=== PATIENT | female | born 1990 | race Caucasian/White ===

== ENCOUNTER 2018-06-20 14:11 | Emergency (ER) | payer MEDICAID ==
[2018-06-20 14:22] VITALS: BP 146/97
--- NOTE | 2018-06-20 16:09 | ED Physician Documentation ---
PD HPI URI - Stated complaint Stated Complaint: FLU LIKE SYMPTOMS - Chief complaint Chief Complaint: General - History obtained from History obtained from: Patient - History of Present Illness Timing - onset: Yesterday Timing duration: Days (1) Timing details: Abrupt onset, Still present Associated symptoms: Fever, Chills, Sore throat, Dry cough. No: Chest pain, Dyspnea Contributing factors: Sick contact (flu) Similar symptoms before: Has not had sx before Recently seen: Not recently seen Review of Systems Constitutional: reports: Fever, Chills, Myalgias, Fatigue Nose: reports: Rhinorrhea / runny nose, Congestion Throat: reports: Sore throat Respiratory: reports: Cough GI: reports: Nausea. denies: Vomiting, Diarrhea Skin: denies: Rash Neurologic: reports: Headache. denies: Altered mental status PD PAST MEDICAL HISTORY - Past Medical History Cardiovascular: None Respiratory: None Neuro: None Endocrine/Autoimmune: None - Present Medications Home Medications: Ambulatory Orders Medication Instructions Recorded Confirmed Dexamethasone [Decadron] 4 mg PO DAILY #5 tablet 06/20/18 Ondansetron Odt [Zofran] 4 mg TL Q6H PRN #10 tablet 06/20/18 Oseltamivir [Tamiflu] 75 mg PO BID #10 capsule 06/20/18 Tramadol HCl 50 mg PO Q6H PRN #15 tablet 06/20/18 - Allergies Allergies/Adverse Reactions: Allergies Allergy/AdvReac Type Severity Reaction Status Date / Time No Known Drug Allergies Allergy Verified 06/20/18 14:21 PD ED PE NORMAL - Vitals Vital signs reviewed: Yes - General General: Alert and oriented X 3, No acute distress, Well developed/nourished - HEENT HEENT: Ears normal. No: Pharynx benign (some tonsillar swelling and redness without exudate.) - Neck Neck: Supple, no meningeal sign, No adenopathy - Cardiac Cardiac: RRR, No murmur - Respiratory Respiratory: Clear bilaterally - Abdomen Abdomen: Soft, Non tender - Derm Derm: Normal color, Warm and dry - Neuro Neuro: Alert and oriented X 3, No motor deficit, Normal speech Results - Vitals Vitals: Oxygen O2 Source Room air - Labs Labs: Laboratory Tests 06/20/18 14:25 Influenza A (Rapid) POSITIVE H Influenza B (Rapid) Negative PD MEDICAL DECISION MAKING - ED course Complexity details: considered differential (seems like the flu), d/w patient Departure - Departure Disposition: 01 Home, Self Care Clinical Impression: Influenza A Condition: Stable Record reviewed to determine appropriate education?: Yes Instructions: ED Flu, Medication: Tamiflu (Oseltamivir) Prescriptions: Dexamethasone [Decadron] 4 mg PO DAILY #5 tablet Ondansetron Odt [Zofran] 4 mg TL Q6H PRN #10 tablet PRN Reason: Nausea / Vomiting Oseltamivir [Tamiflu] 75 mg PO BID #10 capsule Tramadol HCl 50 mg PO Q6H PRN #15 tablet PRN Reason: Pain Comments: Frequent fluids such as Gatorade. Simple foods such as starches (pasta rice breads) initially and progress as able. Ondansatron if needed for nausea. Tamiflu twice daily for 5 days to reduce the symptoms of the flu a bit. Decadron steroid anti-inflammatory will help with some of the inflammatory symptoms so not quite as ill. Add Tylenol or ibuprofen for fevers and pains. Add tramadol if needed for worse pains. Expect to be sick 5-7 days likely. Off work the next few days as needed until improved enough to return. Forms: Activity restrictions Discharge Date/Time: 06/20/18 16:53
[2018-06-20] MEDS ORDERED: HYDROcod/ACETAM 5/325 MG TABLET PO STA (16:27)
[2018-06-20] MEDS ORDERED: DEXAMETHASONE 10 MG/ML VIAL PO STA (16:27)
[2018-06-20] MEDS ORDERED: ONDANSETRON ODT 4 MG TABLET TL STA (16:27)
[2018-06-20] MEDS ORDERED: CHERRY SYRUP 10 ML UDC PO ONE (16:53)
== END 2018-06-20 16:53 | disposition home or self-care (01) ==
LOC: ED 14:11
DX: J10.89 Influenza due to other identified influenza virus with other manifestations (principal)
CPT/HCPCS: 87275; 87276; 99283; A9270; Q0162

== ENCOUNTER 2018-08-19 21:37 | Emergency (ER) | payer MEDICAID ==
[2018-08-19] MEDS ORDERED: NAPROXEN 250 MG TABLET PO STA (22:23)
--- NOTE | 2018-08-19 22:51 | ED Physician Documentation ---
PD HPI UPPER EXT INJURY - Stated complaint Stated Complaint: BILATE WRIST PX - Chief complaint Chief Complaint: Ext Problem - History obtained from History obtained from: Patient - History of Present Illness Location: Both, Wrist, Hand (She has been having pain in both wrists and numbness in through the middle fingers while at work. 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 She will feel it some numbness even after work. She denies any abrupt injury to it.) Where injury occurred: Work Timing - onset: How many weeks ago (She has been noticing the symptoms for several weeks and has been getting worse. She is now had some pain in the wrist and numbness at work in particular for most of her work shifts in her wrist started hurting with just slight gripping and lifting. She denies any elbow or shoulder pain or any neck pain.) Timing - duration: Weeks Timing - details: Gradual onset, Intermittant Worsened by: Palpating, Other (gripping and lifting) Associated symptoms: Numbness (in the fingers when using them a lot). No: Weakness Recently seen: Not recently seen Review of Systems Constitutional: denies: Fever, Chills Nose: denies: Rhinorrhea / runny nose, Congestion Throat: denies: Sore throat Respiratory: denies: Cough Skin: denies: Rash, Lesions Neurologic: reports: Numbness (intermittently when hurting more or with continued hand use.). 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 HEENT: None Psych: None Musculoskeletal: None Derm: None - Past Surgical History Past Surgical History: No - Present Medications Home Medications: Ambulatory Orders Medication Instructions Recorded Confirmed Dexamethasone [Decadron] 4 mg PO DAILY #5 tablet 06/20/18 Ondansetron Odt [Zofran] 4 mg TL Q6H PRN #10 tablet 06/20/18 Oseltamivir [Tamiflu] 75 mg PO BID #10 capsule 06/20/18 RX: Tramadol HCl 50 mg PO Q6H PRN #15 tablet 06/20/18 RX: Naproxen 500 mg PO BID #20 tablet 08/19/18 RX: Tramadol HCl 50 mg PO Q6H PRN #15 tablet 08/19/18 - Allergies Allergies/Adverse Reactions: Allergies Allergy/AdvReac Type Severity Reaction Status Date / Time No Known Drug Allergies Allergy Verified 08/19/18 21:47 - Social History Does the pt smoke?: Yes Smoking Status: Current every day smoker Does the pt drink ETOH?: No - Immunizations Immunizations are current?: Yes - POLST Patient has POLST: No PD ED PE NORMAL - Vitals Vital signs reviewed: Yes - General General: Alert and oriented X 3, No acute distress, Well developed/nourished - Neck Neck: Supple, no meningeal sign, No bony TTP, No adenopathy - Derm Derm: Normal color, Warm and dry, No rash - Extremities Extremities: Other (some tender bilateral volar wrists. Does not hurt to tap there. Good color and cap refill in fingers. No edema of fingers. ) Results - Vitals Vitals: Vital Signs - 24 hr 08/19/18 08/19/18 08/19/18 21:45 22:05 22:54 Temperature 37.0 C 36.4 C L Heart Rate 84 92 Respiratory 17 16 16 Rate Blood Pressure 143/82 H 154/98 H O2 Saturation 100 100 Oxygen O2 Source Room air PD MEDICAL DECISION MAKING - ED course Complexity details: considered differential (sounds like carpal tunnel. ), d/w patient Departure - Departure Disposition: 01 Home, Self Care Clinical Impression: Carpal tunnel syndrome Condition: Stable Record reviewed to determine appropriate education?: Yes Instructions: ED Carpal Tunnel Follow-Up: Curry Dias MD [Provider Admit Priv/Credential] - Prescriptions: RX: Naproxen 500 mg PO BID #20 tablet RX: Tramadol HCl 50 mg PO Q6H PRN #15 tablet PRN Reason: Pain Comments: Use the wrist splints during work if you can but in particular wear them at night during sleep to provide a good portion of the day where the wrists are splinted and allow for inflammation to go down. Use naproxen twice daily for the next 10 days. Take it with food. Add Tylenol or tramadol if needed for pain. Follow-up with orthopedics, call tomorrow for an appointment for next week to reevaluate how you are doing with the splints and medicines and see if any further treatment is needed. This does sound like carpal tunnel syndrome and often will decrease with the splinting and anti-inflammatories. Discharge Date/Time: 08/19/18 22:55
[2018-08-19 22:55] VITALS: BP 154/98
== END 2018-08-19 22:55 | disposition home or self-care (01) ==
LOC: ED 21:37
DX: G56.03 Carpal tunnel syndrome, bilateral upper limbs (principal); F17.200 Nicotine dependence, unspecified, uncomplicated
CPT/HCPCS: 99283; 99284; A9270

== ENCOUNTER 2022-05-24 08:00 | Outpatient (CLI) | payer MEDICAID | END 2022-05-24 23:59 | disposition home or self-care (01) | LOC: LAB.N 08:00 | PROVIDERS: ATTEND Physician Assistant Medical | DX: N30.00 Acute cystitis without hematuria (principal) | CPT/HCPCS: 87086; 87181 ==

== ENCOUNTER 2023-05-06 08:00 | Outpatient (CLI) | payer MEDICAID ==
[2023-05-07 20:18] LABS: CHLAMYDIA TRACHOMATIS DNA NEGATIVE (NEGATIVE); NEISSERIA GONORRHOEAE DNA NEGATIVE (NEGATIVE); TRICHOMONAS VAGINALIS DNA NEGATIVE (NEGATIVE)
== END 2023-05-06 23:59 | disposition home or self-care (01) ==
LOC: LAB.WC 08:00
PROVIDERS: ATTEND Obstetrics & Gynecology
DX: Z11.3 Encounter for screening for infections with a predominantly sexual mode of transmission (principal)
CPT/HCPCS: 87491; 87591; 87661

== ENCOUNTER 2023-05-27 16:20 | Emergency (ER) | payer MEDICAID ==
--- NOTE | 2023-05-27 16:25 | ED Physician Documentation ---
History of Present Illness - Stated complaint Stated Complaint: ACCIDENTAL NEEDLESTICK - History obtained from History obtained from: Patient - History of Present Illness Timing: Today Pain level max: 0 Pain level now: 0 - Additonal information Additional information: 32-year-old female here as a source patient from an employee who had a accidental needlestick today. She is here for testing. No other complaints Patient states that she received a Depo injection, she states that the nurse poked her, then the nurse accidentally poked herself in the pump to the patient again. Patient denies any history of HIV or hepatitis C. 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 : None HEENT: None Psych: None Musculoskeletal: None Derm: None - Past Surgical History Past Surgical History: No - Present Medications Home Medications: Ambulatory Orders Medication Instructions Recorded Confirmed Citalopram [CeleXA] 20 mg PO DAILY 05/27/23 hydrOXYzine HCL [Hydroxyzine HCl] 25 mg PO HS 05/27/23 - Allergies Allergies/Adverse Reactions: Allergies Allergy/AdvReac Type Severity Reaction Status Date / Time No Known Drug Allergies Allergy Verified 05/27/23 16:41 - Social History Does the pt smoke?: Yes Smoking Status: Current every day smoker Does the pt drink ETOH?: No - Immunizations Immunizations are current?: Yes - POLST Patient has POLST: No PD ED PE NORMAL - Vitals Vital signs reviewed: Yes - General General: Alert and oriented X 3, No acute distress - HEENT HEENT: Moist mucous membranes - Neck Neck: Supple, no meningeal sign - Respiratory Respiratory: No respiratory distress, Clear bilaterally - Derm Derm: Warm and dry - Neuro Neuro: Alert and oriented X 3 Results - Vitals Vitals: Vital Signs - 24 hr 05/27/23 16:33 Temperature 36.3 C L Heart Rate 111 H Respiratory 17 Rate Blood Pressure 147/101 H O2 Saturation 100 Oxygen O2 Source Room air PD Medical Decision Making - ED course Complexity details: considered differential, d/w patient ED course: Exposure panel drawn. Patient informed that she needs to follow-up the results with her doctor as they will not be available today. Also counseled that she needs repeat testing at 2 and 6 months. Patient had some concerns regarding the exposure, therefore Maite from [employer] came and spoke with the patient as well. Patient counseled regarding signs and symptoms for which I believe and urgent re-evaluation would be necessary. Patient with good understanding of and agreement to plan and is comfortable going home at this time This document was made in part using voice recognition software. While efforts are made to proofread this document, sound alike and grammatical errors may occur. 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 Please follow-up with your doctor regarding the results of the HIV, hepatitis C and hepatitis B testing. This is considered a low risk needle exposure and prophylaxis against HIV is generally not indicated. The results should be available in a few days. You should have repeat testing in 2 months and 6 months with your doctor. Forms: PCP List
[2023-05-27 16:42] VITALS: BP 147/101; O2SAT 100
[2023-05-28 09:10] LABS: HCV AB Non Reactive (Non Reactive)
[2023-05-28 20:08] LABS: HIV SCREEN 4TH GENERATION Non Reactive (Non Reactive)
== END 2023-05-27 16:58 | disposition home or self-care (01) ==
LOC: ED 16:20
DX: S41.139A Puncture wound without foreign body of unspecified upper arm, initial encounter (principal); W46.1XXA Contact with contaminated hypodermic needle, initial encounter; Y92.531 Health care provider office as the place of occurrence of the external cause; F17.200 Nicotine dependence, unspecified, uncomplicated
CPT/HCPCS: 86317; 86803; 87389; 99283